=== PATIENT | male | born 1985 | race Caucasian/White ===

== ENCOUNTER → 2016-03-20 | Outpatient (CLI) | payer OTHER ==
[~2016-03-20] MED LIST: ENBREL
--- NOTE | 2016-03-20 06:58 | DIAGNOSTIC IMAGING REPORT ---
CT OF THE CHEST WITHOUT IV CONTRAST CLINICAL HISTORY: Pulmonary nodule COMPARISON STUDY: 03/05/2008 CT DOSE: 965.95 mGy.cm TECHNIQUE: CT of the thorax was performed from the thoracic inlet to the lung bases. Images are reviewed in the axial, sagittal, and coronal planes. IV contrast was not administered for this examination. FINDINGS: Thyroid: Imaged portions of the thyroid gland are normal in appearance. Thoracic aorta: The thoracic aorta is normal in course and caliber, noting standard 3 vessel arch anatomy. Heart: The heart is normal in size and configuration, without pericardial effusion. Lungs and pleural spaces: There are no pleural effusions. There is no focal pulmonary consolidation. There is a stable subpleural 5 mm right lower lobe pulmonary nodule. There is a 3 mm right middle lobe pulmonary nodule as visualized in image #168/331. This demonstrates 1 mm interval growth when compared the prior study. There is a 3 mm right upper lobe point nodule as visualized in image #114/331. This also demonstrates 1 mm interval growth when compared the prior study there is a 2 mm right apical pulmonary nodule as visualized in image #75/331. There is a 2 mm left apical pulmonary nodule as visualized in image #64/331. There is a 3 mm left upper lobe perifissural nodule.. There is a 4 mm left lower lobe pulmonary nodule as visualized in image #171/331. This demonstrates 1 mm interval growth when compared the prior study. Mediastinum: There is no mediastinal lymphadenopathy. Ebony: Clear. Axilla: Clear. Upper abdomen: Partially visualized upper abdominal viscera is within normal limits. Skeletal structures: There are no lytic or blastic osseous lesions. IMPRESSION: 1. Scattered bilateral subcentimeter pulmonary nodules. In the absence of a known primary malignancy or high risk factors, given the patient's age, current recommendations would indicate no need for further follow-up. 2. No evidence of acute parenchymal consolidation 3. No evidence of pathologic adenopathy Electronically signed by: Bryan Welsh M.D. 03/20/2016 6:57 AM Dictated Date/Time: 03/20/2016 6:47 AM
== END | disposition home or self-care (01) ==
LOC: C.CTS 03:16
PROVIDERS: ATTEND Family Medicine
DX: R91.8 Other nonspecific abnormal finding of lung field (principal)

== ENCOUNTER → 2016-07-27 | Outpatient (CLI) | payer OTHER ==
[2016-07-27 19:41] LABS: CHOLESTEROL/HDL RATIO 5.5
== END | disposition home or self-care (01) ==
LOC: C.LAB 18:22
PROVIDERS: ATTEND Dermatology
DX: Z79.899 Other long term (current) drug therapy (principal)

== ENCOUNTER → 2017-01-05 | Outpatient (CLI) | payer OTHER ==
[2017-01-05 22:27] LABS: BASO % 0.1 %; BASO ABS # 0.01 K/uL (0-0.2); COMPLETE YES; EOS % 1.1 %; HEMATOCRIT 46.1 % (42-52); IG% 0.3 %; LYMPH % 26.8 %; LYMPH ABS # 2.62 K/uL (1.2-3.4); MEAN CELL VOLUME 87.1 fL (80-100); MEAN CORPUSCULAR HEMOGLOBIN 29.9 pg (25-34); MEAN CORPUSCULAR HGB CONC 34.3 g/dl (32-36); MEAN PLATELET VOLUME 10.3 fL (7.4-10.4); MONO % 9.6 %; NEUT % 62.1 %; PLATELET COUNT 232 K/uL (130-400); RED BLOOD COUNT 5.29 M/uL (4.7-6.1); WHITE BLOOD COUNT 9.76 K/uL (4.8-10.8)
[2017-01-05 22:52] LABS: CHOLESTEROL/HDL RATIO 4.3
== END | disposition home or self-care (01) ==
LOC: C.LAB 22:07
PROVIDERS: ATTEND Dermatology
DX: Z51.81 Encounter for therapeutic drug level monitoring (principal); Z79.899 Other long term (current) drug therapy